=== PATIENT | female | born 1980 | race American Indian/Alaskan Native ===

== ENCOUNTER 2019-12-18 11:31 | Outpatient (CLI) | payer MEDICAID ==
--- NOTE | 2019-12-18 16:13 | Ultrasound Report ---
BILATERAL DIGITAL DIAGNOSTIC MAMMOGRAM WITH CAD 12/18/2019 BILATERAL COMPLETE BREAST ULTRASOUND INDICATION: Bilateral breast lumps and milky discharge. The patient describes a palpable lump in the upper outer right breast. TECHNIQUE: Digital bilateral mammographic imaging was performed. Complete ultrasound of all four (4) quadrants was performed. This examination was interpreted with the benefit of Computer-Aided Detecti on (CAD) analysis. COMPARISON: None. These are baseline studies. FINDINGS: Breast Density: The breasts are heterogeneously dense, which may obscure small masses. MAMMOGRAPHIC FINDINGS: There is no evidence of dominant mass, suspicious calcifications or architectu ral distortion in either breast. However, a right asymmetry slightly below the nipple on the MLO view demonstrates persistence on spot compression. ULTRASOUND FINDINGS: Complete sonographic evaluation of all 4 quadrants and retroareolar region was p erformed. Ultrasound of the right breast demonstrated several subcentimeter cysts. An oval partiall y circumscribed complex cyst versus solid nodule or fat lobule at 10:00 2 cm from the nipple measures 8 x 4 x 6 mm. Ultrasound of the left breast demonstrated several subcentimeter benign cysts and no s olid mass. Several of these small cysts have internal echoes. IMPRESSION: Probably benign bilateral findings. Recommend bilateral 6 month follow-up ultrasound to r eevaluate the size of bilateral ultrasound lesions. I spoke to the patient regarding these findings and also recommended that she consult with a breast s urgeon in regards to what she is feeling in the upper outer right breast. This may correlate with the dominant complex cyst versus solid nodule or fat lobule at 10:00 2 cm from the nipple. Follow up recommendation: Short term follow up in 6 months. BI-RADS Category 3: Probably Benign. Followup in 6 months. A "normal" or negative report should not discourage follow up or biopsy of a clinically significant f inding. A written summary of these findings will be mailed to the patient. The patient will be entered into a mammography reporting system which will generate a reminder letter for the patient's next appointmen t at the appropriate interval. According to the [employer], yearly mammograms are recommended starting at age 40 and continuing as long as a woman is in good health. Breast MRI is recommended for women with an melanie roximately 20-25% or greater lifetime risk of breast cancer, including women with a strong family his tory of breast or ovarian cancer and women who have been treated for Hodgkin's disease. Signer Name: Basilio Young MD Signed: 12/18/2019 4:09 PM Workstation Name: [id number]
== END 2019-12-18 11:32 | disposition home or self-care (01) ==
LOC: MAMMO 11:31 → LAB 11:31 → MAMMO 11:32
PROVIDERS: ATTEND Emergency Medicine
DX: R92.8 Other abnormal and inconclusive findings on diagnostic imaging of breast (principal)
CPT/HCPCS: 77066